=== PATIENT | female | born 1955 | race Caucasian/White ===

== ENCOUNTER 2018-04-03 14:18 | Emergency (ER) | payer MEDICARE, SELFPAY ==
[2018-04-03 14:19] VITALS: BP 167/63; PULSE 83; RESP 17; TEMP 36.8; O2SAT 99; BMI 28.6
[2018-04-03 14:22] VITALS: O2SAT 99
--- NOTE | 2018-04-03 14:45 | EKG12_ITS ---
Test Reason : DYSRHYTHMIA Blood Pressure : / mmHG Vent. Rate : 081 BPM Atrial Rate : 081 BPM P-R Int : 136 ms QRS Dur : 102 ms QT Int : 410 ms P-R-T Axes : 063 096 193 degrees QTc Int : 476 ms Normal sinus rhythm Nonspecific ST and T wave abnormality Prolonged QT Abnormal ECG Confirmed by CARMEN BINGHAM, ELVER ([id number]), field map editor IRINA SCOTT ([id number]) on 04/08/2018 2:10:56 PM Referred By: SHRAVAN Confirmed By:ELVER MORALES MD
--- NOTE | 2018-04-03 14:50 | RAD_ITS ---
STUDY: X-RAY CHEST REASON FOR EXAM: Female, 62 years old. Chest pain. TECHNIQUE: Single AP portable view of the chest. COMPARISON: Comparison is made with prior examination dated July 12, 2017. FINDINGS: EKG electrodes are seen. Increasing right pleural effusion with underlying right basilar infiltration and/or atelectasis superimposed on mild degree of CHF. There is mild cardiac enlargement. Normal mediastinum and su. Normal visualized pulmonary arteries. There is atherosclerotic calcification of the aortic arch with tortuosity. Normal visualized thoracic spine. Normal visualized ribs, clavicles, and shoulders. There is no demonstrated abnormality of the visualized soft tissue structures of the upper abdomen. RAD/Chest 1 View (Portable) IMPRESSION: Increasing right pleural effusion with underlying infiltration and/or atelectasis superimposed on mild degree of CHF. Electronically Signed: Jaswinder Catalan MD at 15:25 EDT Tel [phone], Service support ,
[2018-04-03] MEDS: Aspirin 81 MG TAB.CHEW 324 MG PO (15:03)
[2018-04-03 15:09] LABS: Absolute Lymphocyte Count 0.63 X10^3/ul (0.83-4.51); Absolute Neutrophil Count 4.5 X10^3/uL (2.0-7.7); Basophil# 0.04 X10^3/uL; Basophil% 0.7 % (0-1); Eosinophil# 0.25 X10^3/uL; Eosinophils% 4.2 % (0-5); Hematocrit 34.3 % (37-47); Hemoglobin 11.1 g/dl (12.0-15.0); Lymphocyte # 0.63 X10^3/ul (4.0); Lymphocyte % 10.5 % (19-41); Mean Corp Hgb Conc 32.4 g/gl (32-36); Mean Corpuscular Hgb 29.8 pg (27.0-32.0); Monocyte# 0.59 X10^3/uL; Monocyte% 9.8 % (0-10); Neutrophil # 4.45 X10^3/uL (2.7-7.7); Neutrophil % 74.3 % (47-70); Platelet Count 233 K/mm3 (150-450); RBC Distribution Width CV 17.6 % (11.6-14.6); RBC Distribution Width SD 57.7 fl (35.1-43.9); Red Blood Count 3.73 M/mm3 (4.2-5.4)
[2018-04-03 15:13] LABS: International Normalized Ratio 1.3; Partial Thromboplast Time 29.6 Seconds (24.1-36.2); Prothrombin Time (Protime)PT. 15.8 SECONDS (11.7-14.9)
[2018-04-03 15:15] LABS: POSITIVE COUNT NO; POSITIVE DIFFERENTIAL NO; POSITIVE MORPHOLOGY NO
[2018-04-03 15:19] LABS: Anion Gap 9 (5-15); BUN 17 mg/dL (7-18); BUN/Creat Ratio 5.9 RATIO (10-20); Calcium,Total 8.4 mg/dL (8.5-10.1); Chloride 97 mmol/L (98-107); EST Glomerular Filtration Rate 18 mL/min (>60); Est Glom Filt Rate - Afr Amer 21 mL/min (>60); Estimated Creatinine Clearance 14.63 ml/min; Glucose 303 mg/dL (74-106); Potassium 3.4 mmol/L (3.5-5.1); Sodium Level 135 mmol/L (136-145)
--- NOTE | 2018-04-03 16:20 | ED.VISSUMM ---
- ER Visit Summary Date of Service: 04/03/18 Chief Complaint: Shortness of breath History of Present Illness: The patient is a [address] Michaud, Dr. Sharpe, and Dr. Sargent. She reports that she has a history of a right pleural effusion. She has had thoracentesis for this twice. Last was approximately 2 months ago and done at [place]. She reports that her varnish filterer, Dr. Sharpe, felt that she needed another thoracentesis as an outpatient. She states that she was supposed to go to the emergency department last week to rule out pneumonia and then have this scheduled this week. She did not go to the emergency department or get this scheduled this week. She reports that she has had shortness of breath for the past 2 weeks that is been gradually getting worse. It is mild currently and severe when she exerts herself. She has a chronic cough that is unchanged. No fever or sweats. She does complain of chills. She denies any chest pain. She reports that she had an echocardiogram by her embroidery patternmaker 2 days ago. Physical Examination: Vitals: 98.3, 161/63, 83, 17, 99% on 2-1/2 L nasal cannula which is her home O2. General: Well-nourished and well-developed. Head: Normocephalic atraumatic. Neck: Supple, no lymphadenopathy. No JVD. Nontender. Cardiovascular: Regular rate and rhythm. No murmurs. Respiratory: No respiratory distress. Clear to auscultation bilaterally. Abdominal: Soft, nontender, nondistended, normal bowel sounds. No guarding, rebound, or peritoneal signs. Back: Nontender. Extremities: Nontender, 2+ pitting edema in her lower extremities bilaterally. Skin: Normal color, no rash. Neurologic: Alert and oriented ?3. Cranial nerves II through XII are intact. Normal strength and sensation. Psych: Normal affect. Test Results: EKG is sinus at [address] depression and T-wave inversions. This is not significantly changed since June of last year. Troponin is negative. INR is 1.3. PTT is 29.6. Chem-7 is marked for sodium 135, potassium 3.4, chloride 97, creatinine 2.9, glucose 303, calcium 8.4. CBC is marked for an H&H 11.1 34.3, 7 neutrophils 74, leukocytes of 11. Chest x-ray does show a right pleural effusion which is approximately one third the height of her lung. There is compressive atelectasis. Emergency Department Course and Treatment: Patient is resting comfortably on her home O2. I do not think that emergent thoracentesis is indicated or in her best interest. I did have a prolonged discussion with her about her elevated blood sugar. She is not taking any of her medications for diabetes and does not want to any longer. I discussed with her the risk of stroke, blindness, heart attacks, kidney problems, peripheral neuropathy and potential amputations. Treatment Plan: Patient would like to go home. She will be discharged with instructions to follow-up with her varnish filterer and embroidery patternmaker as soon as possible. Return to the emergency department for any worsening symptoms. Disposition: To home in improved and stable condition. Impression: 1. Right pleural effusion. 2. End-stage renal disease. 3. Anemia. This note was generated with [employer] dictation software. It may contain incorrect words, spelling, and punctuation that were not noted in review of the chart prior to signing ED Disposition - Plan for ED Patient: Chief Complaint: Shortness of Breath Instructions: ED Effusion Pleural Referrals: Riaz Michaud MD [Primary Care Provider] - Additional Instructions: Follow up with Dr. Sharpe and Dr. Sargent as soon as possible.
[2018-04-03 16:25] VITALS: BP 189/74; PULSE 89; RESP 20; O2SAT 100
--- NOTE | 2018-04-03 16:27 | ED.DCSUM_ITS ---
- ER Visit Summary Date of Service: 04/03/18 Chief Complaint: Shortness of breath History of Present Illness: The patient is a [address] Michaud, Dr. Sharpe , and Dr. Sargent. She reports that she has a history of a right pleural effusion. She has had thoracentesis for this twice. Last was approximately 2 months ago and done at [place]. She reports that her specialized language instructor, Dr. Sharpe , felt that she needed another thoracentesis as an outpatient. She states that she was supposed to go to the emergency department last week to rule out pneumonia and then have this scheduled this week. She did not go to the emergency department or get this scheduled this week. She reports that she has had shortness of breath for the past 2 weeks that is been gradually getting worse. It is mild currently and severe when she exerts herself. She has a chronic cough that is unchanged. No fever or sweats. She does complain of chills. She denies any chest pain. She reports that she had an echocardiogram by her project engineering manager 2 days ago. Physical Examination: Vitals: 98.3, 161/63, 83, 17, 99% on 2-1/2 L nasal cannula which is her home O2. General: Well-nourished and well-developed. Head: Normocephalic atraumatic. Neck: Supple, no lymphadenopathy. No JVD. Nontender. Cardiovascular: Regular rate and rhythm. No murmurs. Respiratory: No respiratory distress. Clear to auscultation bilaterally. Abdominal: Soft, nontender, nondistended, normal bowel sounds. No guarding, rebound, or peritoneal signs. Back: Nontender. Extremities: Nontender, 2+ pitting edema in her lower extremities bilaterally. Skin: Normal color, no rash. Neurologic: Alert and oriented ?3. Cranial nerves II through XII are intact. Normal strength and sensation. Psych: Normal affect. Test Results: EKG is sinus at [address] depression and T-wave inversions. This is not significantly changed since June of last year. Troponin is negative. INR is 1.3. PTT is 29.6. Chem-7 is marked for sodium 135, potassium 3.4, chloride 97, creatinine 2.9, glucose 303, calcium 8.4. CBC is marked for an H&H 11.1 34.3, 7 neutrophils 74, leukocytes of 11. Chest x- ray does show a right pleural effusion which is approximately one third the height of her lung. There is compressive atelectasis. Emergency Department Course and Treatment: Patient is resting comfortably on her home O2. I do not think that emergent thoracentesis is indicated or in her best interest. I did have a prolonged discussion with her about her elevated blood sugar. She is not taking any of her medications for diabetes and does not want to any longer. I discussed with her the risk of stroke, blindness, heart attacks, kidney problems, peripheral neuropathy and potential amputations. Treatment Plan: Patient would like to go home. She will be discharged with instructions to follow-up with her specialized language instructor and project engineering manager as soon as possible. Return to the emergency department for any worsening symptoms. Disposition: To home in improved and stable condition. Impression: 1. Right pleural effusion. 2. End-stage renal disease. 3. Anemia. This note was generated with [employer] dictation software. It may contain incorrect words, spelling, and punctuation that were not noted in review of the chart prior to signing ED Disposition - Plan for ED Patient: Chief Complaint: Shortness of Breath Instructions: ED Effusion Pleural Referrals: Riaz Michaud MD [Primary Care Provider] - Additional Instructions: Follow up with Dr. Sharpe and Dr. Sargent as soon as possible.
--- NOTE | 2018-04-04 11:08 | CM.ED ---
ED CALLBACK: Follow-up call attempted. Patient non-compliance noted in ED Report. I called both phone numbers listed and left a message requesting return call with contact information provided.
== END 2018-04-03 16:52 | disposition home or self-care (01) ==
PROVIDERS: Emergency Provider Emergency Medicine; Family Provider Family Medicine; PCP Family Medicine
DX: J90 Pleural effusion, not elsewhere classified (principal); E11.22 Type 2 diabetes mellitus with diabetic chronic kidney disease; I12.0 Hypertensive chronic kidney disease with stage 5 chronic kidney disease or end stage renal disease; N18.6 End stage renal disease; D64.9 Anemia, unspecified; J98.11 Atelectasis; I25.10 Atherosclerotic heart disease of native coronary artery without angina pectoris; E78.00 Pure hypercholesterolemia, unspecified; Z99.81 Dependence on supplemental oxygen; Z79.82 Long term (current) use of aspirin; Z79.01 Long term (current) use of anticoagulants; Z79.899 Other long term (current) drug therapy
CPT/HCPCS: 71045; 80048; 84484; 85025; 85610; 85730; 93005; 99284; A4216